=== PATIENT | male | born 1950 | race Caucasian/White ===

== ENCOUNTER → 2023-12-25 19:06 | Outpatient (REF) | payer MEDICARE, SELFPAY | LOC: MRI 3T 19:06 | PROVIDERS: ATTENDING PHYSICIAN Pain Medicine Interventional Pain Medicine; FAMILY PHYSICIAN Internal Medicine | DX: M54.16 Radiculopathy, lumbar region (principal) | CPT/HCPCS: 72148 ==

== ENCOUNTER → 2024-03-01 10:18 | Outpatient (REF) | payer MEDICARE, SELFPAY | LOC: RAD 10:18 | PROVIDERS: ATTENDING PHYSICIAN Internal Medicine Critical Care Medicine; FAMILY PHYSICIAN Internal Medicine | DX: J45.30 Mild persistent asthma, uncomplicated (principal) | CPT/HCPCS: 71046 ==